=== PATIENT | male | born 1985 | race Caucasian/White ===

== ENCOUNTER 2018-10-17 09:27 | Inpatient (IN) | payer OTHER ==
--- NOTE | 2018-10-17 10:55 | HP ---
CIWA Score Nausea/Vomitin Muscle Tremors: 2 Anxiety: 2 Agitation: 2 Paroxysmal Sweats: 1-Minimal Palms Moist Orientation: 0-Oriented Tacttile Disturbances: 1-Very Mild Itch/Numbness Auditory Disturbances: 0-None Visual Disturbances: 1-Very Mild Sensitivity Headache: 2-Mild CIWA-Ar Total Score: 13 - Admission Criteria OASAS Guidelines: Admission for Medically Managed Detox: Requires at least one of the followin. CIWA greater than 12 2. Seizures within the past 24 hours 3. Delirium tremens within the past 24 hours 4. Hallucinations within the past 24 hours 5. Acute intervention needed for co occurring medical disorder 6. Acute intervention needed for co occurring psychiatric disorder 7. Severe withdrawal that cannot be handled at a lower level of care (continued vomiting, continued diarrhea, abnormal vital signs) requiring intravenous medication and/or fluids 8. Patient presents the following: CIWA greater than 12 Admission Criteria Met: Admission criteria met Admission ROS [facility] - HPI Chief Complaint: i need help to stop drinking alcohol,cocaine,marijuana,pcp Allergies/Adverse Reactions: Allergies Allergy/AdvReac Type Severity Reaction Status Date / Time No Known Allergies Allergy Verified 10/17/18 10:30 History of Present Illness: this 33 years old male with alcohol,cocaine,marijuana and pcp abused,withdrawal symptom,seeking detox,never been in detox before syncope nicotine dependence weight loss longest period for 16 months Exam Limitations: No Limitations - Ebola screening Have you traveled outside of the country in the last 21 days: No Have you had contact with anyone from an Ebola affected area: No Have you been sick,other than usual withdrawal symptoms: No Do you have a fever: No - Review of Systems Constitutional: Loss of Appetite, Malaise, Night Sweats, Changes in sleep, Weakness, Unintentional Wgt. Loss EENT: reports: Tearing, Nose Congestion Respiratory: reports: No Symptoms reported Cardiac: reports: No Symptoms Reported GI: reports: Nausea, Abdominal cramping : reports: No Symptoms Reported Musculoskeletal: reports: Back Pain, Muscle Pain Integumentary: reports: Dryness Neuro: reports: Headache, Tremors Endocrine: reports: No Symptoms Reported Hematology: reports: No Symptoms Reported Psychiatric: reports: No Sypmtoms Reported, Judgement Intact, Mood/Affect Appropiate, Orientated x3 Other Systems: Reviewed and Negative Patient History - Patient Medical History Hx Asthma: Yes (child silva asthma) Hx Chronic Obstructive Pulmonary Disease (COPD): No Hx Cancer: No Hx Cardiac Disorders: No Hx Congestive Heart Failure: No Hx Hypertension: No Hx Hypercholesterolemia: No Hx Pacemaker: No HX Cerebrovascular Accident: No Hx Seizures: No Hx Dementia: No Hx Diabetes: No Hx Gastrointestinal Disorders: No Hx Liver Disease: No Hx Genitourinary Disorders: No Hx Sexually Transmitted Disorders: No Hx Renal Disease (ESRD): No Hx Thyroid Disease: No Hx Human Immunodeficiency Virus (HIV): No (last 2017 negative) Hx Hepatitis C: No Hx Depression: No Hx Suicide Attempt: No Hx Bipolar Disorder: No Hx Schizophrenia: No Other Medical History: no suicidal,no homicidal - Patient Surgical History Past Surgical History: No Hx Neurologic Surgery: No Hx Cataract Extraction: No Hx Cardiac Surgery: No Hx Lung Surgery: No Hx Breast Surgery: No Hx Breast Biopsy: No Hx Abdominal Surgery: No Hx Appendectomy: No Hx Cholecystectomy: No Hx Genitourinary Surgery: No Hx Section: No Hx Orthopedic Surgery: No Anesthesia Reaction: No - PPD History Previous Implant?: Yes Documented Results: Negative w/o proof Implanted On Prior [facility] Admission?: No PPD to be Administered?: No - Smoking Cessation Smoking history: Current every day smoker Have you smoked in the past 12 months: Yes Aproximately how many cigarettes per day: 20 Hx Chewing Tobacco Use: No Initiated information on smoking cessation: Yes 'Breaking Loose' booklet given: 10/17/18 - Substance & Tx. History Hx Alcohol Use: Yes Hx Substance Use: Yes Substance Use Type: Alcohol, Cocaine, Marijuana Hx Substance Use Treatment: No - Substances Abused Cocaine Route: Inhalation Frequency: 1-2 times per week Amount used: $100 Age of first use: 11 Date of Last Use: 10/10/18 PCP Route: Smoking Frequency: 3-6 times per week Amount used: $20 Age of first use: 17 Date of Last Use: 10/16/18 Alcohol-beer/cognac Route: Oral Frequency: Daily Amount used: 2-3 6 pks./2-3 pts. Age of first use: 11 Date of Last Use: 10/17/18 Marijuana Route: Smoking Frequency: Daily Amount used: $40 Age of first use: 9 Date of Last Use: 10/16/18 Family Disease History - Family Disease History Family Disease History: Other: Father (alcohol,dsa,), Mother (alcohol, dsa,) Admission Physical Exam [facility] - Vital Signs Vital Signs: Vital Signs - 24 hr 10/17/18 09:49 Temperature 97.2 F L Pulse Rate 73 Respiratory 18 Rate Blood Pressure 122/85 - Physical General Appearance: Yes: Moderate Distress, Tremorous, Irritable, Sweating, Anxious HEENTM: Yes: Normal ENT Inspection, GIOVANA, Pharynx Normal Respiratory: Yes: Lungs Clear, Normal Breath Sounds, No Respiratory Distress Neck: Yes: Within Normal Limits, Supple, Trachea in good position Breast: Yes: Within Normal Limits Cardiology: Yes: Within Normal Limits, Regular Rhythm, Regular Rate, S1, S2 Abdominal: Yes: Within Normal Limits, Non Tender, Flat, Soft Genitourinary: Yes: Within Normal Limits Back: Yes: Within Normal Limits, Muscle Spasm Musculoskeletal: Yes: Back pain, Muscle Pain Extremities: Yes: Within Normal Limits, Normal Range of Motion, Tremors Neurological: Yes: signal processing engineer II-XII NML intact, Fully Oriented, Alert, Motor Strength 5/5 Integumentary: Yes: Dry Lymphatic: Yes: Within Normal Limits - Diagnostic (1) Alcohol dependence with uncomplicated withdrawal Status: Acute (2) Cocaine dependence Status: Acute (3) Cannabis dependence Status: Acute (4) PCP (phencyclidine) abuse Status: Acute (5) Syncope Status: Acute (6) Weight loss Status: Acute Cleared for Admission [facility] - Detox or Rehab [facility] Level of Care: Medically Managed Detox Regimen/Protocol: Librium [facility] Breath Alcohol Content Breath Alcohol Content: 0 Urine Drug Screen - Results Drug Screen Negative: No Urine Drug Screen Results: THC-Marijuana, BZO-Benzodiazepines
[2018-10-17] MEDS ORDERED: MAG HYDROX/AL HYDROX/SIMETH 30 ML UNIT-DOSE CUP PO PRN (11:03)
[2018-10-17] MEDS ORDERED: MAGNESIUM CITRATE 300 ML BOTTLE PO PRN (11:03)
[2018-10-17] MEDS ORDERED: IBUPROFEN 400 MG TABLET (FP) PO PRN (11:03)
[2018-10-17] MEDS ORDERED: MENTHOL/PHENOL 1 EACH UD MM PRN (11:03)
[2018-10-17] MEDS ORDERED: P-EPHED 60MG/TRIPROLIDI 2.5MG TABLET PO PRN (11:03)
[2018-10-17] MEDS ORDERED: hydrOXYzine PAMOATE 50 MG CAPSULE (FP) PO PRN (11:03)
[2018-10-17] MEDS ORDERED: guaiFENesin/D-METHORPHAN HB 10 ML UNIT-DOSE CUPS PO PRN (11:03)
[2018-10-17] MEDS ORDERED: NICOTINE POLACRILEX 2 MG GUM BUC PRN (11:03)
[2018-10-17] MEDS ORDERED: MAGNESIUM HYDROX 2400MG/30ML ORAL SUSPENSION 30 ML CUP PO PRN (11:03)
[2018-10-17] MEDS ORDERED: LOPERAMIDE HCL 2 MG CAPSULE PO PRN (11:03)
[2018-10-17] MEDS ORDERED: chlordiazePOXIDE HCL 25 MG CAPSULE PO PRN (11:03)
[2018-10-17] MEDS ORDERED: ACETAMINOPHEN 325 MG TABLET (FP) PO PRN (11:03)
[2018-10-17] MEDS ORDERED: NICOTINE 21 MG/24 HOURS TOPICAL PATCH TD SCH (11:45)
--- NOTE | 2018-10-17 12:56 | EKG ---
Test Reason : Blood Pressure : / mmHG Vent. Rate : 071 BPM Atrial Rate : 071 BPM P-R Int : 114 ms QRS Dur : 084 ms QT Int : 362 ms P-R-T Axes : 034 083 061 degrees QTc Int : 393 ms NORMAL SINUS RHYTHM NORMAL ECG NO PREVIOUS ECGS AVAILABLE Confirmed by STEPHEN COLÓN, DAK[place] ([id number]) on 10/17/2018 12:56:26 PM Referred By: Confirmed By:DAKOTA MITCHELL MD
[2018-10-17] MEDS: chlordiazePOXIDE HCL 25 MG CAPSULE PO SCH ×2 (17:31→22:19)
[2018-10-17 21:09] LABS: URINE APPEARANCE CLEAR; URINE BILIRUBIN NEGATIVE (<2.0 mg/dL); URINE COLOR YELLOW; URINE GLUCOSE (UA) NEGATIVE (NEGATIVE); URINE KETONE NEGATIVE (NEGATIVE); URINE LEUK ESTERASE NEGATIVE (NEGATIVE); URINE NITRITE NEGATIVE (NEGATIVE); URINE PROTEIN NEGATIVE (NEGATIVE); URINE UROBILINOGEN NEGATIVE mg/dL (0.2-1.0)
[2018-10-17] MEDS ORDERED: MELATONIN 5 MG TABLETS PO PRN (22:00)
[2018-10-17] MEDS ORDERED: THIAMINE HCL 100 MG TABLET (FP) PO SCH (22:00)
[2018-10-18] MEDS: chlordiazePOXIDE HCL 25 MG CAPSULE PO SCH (06:07)
[2018-10-18 06:24] VITALS: BP 99/60; PULSE 76; TEMP 96.3
--- NOTE | 2018-10-18 08:36 | DS ---
[facility] Detox Discharge Summary Admission Date: 10/17/18 Discharge Date: 10/18/18 - History Present History: Alcohol Dependence Additional Comments: 33 years old male admitted on 10/17/18 for alcohol withdrawal stabilization insists to leave the detox unit due to "need to go to work" alert no acute distress denies suicidal no homocidal no self destructive behavior [facility] - Physical Exam Results Vital Signs: Vital Signs Temperature 96.3 F L 10/18/18 06:23 Pulse Rate 76 10/18/18 06:23 Respiratory Rate 18 10/18/18 06:23 Blood Pressure 99/60 10/18/18 06:23 O2 Sat by Pulse Oximetry (%) Pertinent Admission Physical Exam Findings: alcohol withdrawal sx Laboratory Last Values Urine Color Yellow 10/17/18 15:10 Urine Appearance Clear 10/17/18 15:10 Urine pH 5.0 (5.0-8.0) 10/17/18 15:10 Ur Specific [place] 1.019 (1.010-1.035) 10/17/18 15:10 Urine Protein Negative (NEGATIVE) 10/17/18 15:10 Urine Glucose (UA) Negative (NEGATIVE) 10/17/18 15:10 Urine Ketones Negative (NEGATIVE) 10/17/18 15:10 Urine Blood Negative (NEGATIVE) 10/17/18 15:10 Urine Nitrite Negative (NEGATIVE) 10/17/18 15:10 Urine Bilirubin Negative (<2.0 mg/dL) 10/17/18 15:10 Urine Urobilinogen Negative mg/dL (0.2-1.0) 10/17/18 15:10 Ur Leukocyte Esterase Negative (NEGATIVE) 10/17/18 15:10 HIV 1&2 Antibody Screen Negative 10/17/18 11:10 HIV P24 Antigen Negative 10/17/18 11:10 leb noted - Treatment Hospital Course: Detox Protocol Followed, Responded well Patient has Accepted a Rehab Referral to: [facility] - Medication Discharge Medications: Ambulatory Orders NK [No Known Home Medication] 10/17/18 - Diagnosis (1) Alcohol dependence with uncomplicated withdrawal Current Visit: Yes Status: Acute (2) Weight loss Current Visit: Yes Status: Acute - AMA Did Patient Leave Against Medical Advice: Yes
[2018-10-18] MEDS ORDERED: PRENATAL VITAMINS W/ FOLIC ACID TABLET (FP) PO SCH (10:00)
[2018-10-18 10:31] LABS: MCHC 32.5 g/dl (32.0-35.9)
[2018-10-18 10:35] LABS: HEMATOCRIT 46.8 % (35.4-49); HEMOGLOBIN 15.2 GM/dL (11.7-16.9); MCH 30.3 pg (25.7-33.7); MEAN CELL VOLUME 93.4 fl (80-96); MEAN PLT VOLUME 8.7 fl (7.5-11.1); PLATELET COUNT 296 K/MM3 (134-434); RBC 5.01 M/mm3 (4.00-5.60); RDW 13.3 % (11.9-15.9); WHITE BLOOD COUNT 7.5 K/mm3 (4.0-10.0)
[2018-10-18 11:17] LABS: ALBUMIN 4.4 g/dl (3.4-5.0); ALK PHOS 52 U/L (45-117); ANION GAP 9 MMOL/L (8-16); BILIRUBIN,TOTAL 0.8 mg/dL (0.2-1); BLOOD UREA NITROGEN 10 mg/dL (7-18); CALCIUM 9.4 mg/dL (8.5-10.1); CHLORIDE 103 mmol/L (98-107); CO2 26 mmol/L (21-32); GLUCOSE,RANDOM 90 mg/dL (74-106); SGOT/AST 18 U/L (15-37); SGPT/ALT 23 U/L (13-61); SODIUM 138 mmol/L (136-145)
[2018-10-18] MEDS ORDERED: chlordiazePOXIDE HCL 25 MG CAPSULE PO SCH (17:00)
[2018-10-19] MEDS ORDERED: chlordiazePOXIDE 5 MG CAPSULE PO SCH (17:00)
[2018-10-20] MEDS ORDERED: chlordiazePOXIDE HCL 10 MG CAPSULE PO SCH (17:00)
== END 2018-10-18 09:26 | disposition left against medical advice (07) | DRG 770 ==
LOC: YASAS 09:27 → Y3N 11:17
PROC: HZ2ZZZZ Detoxification Services for Substance Abuse Treatment (ICD-10-PCS; principal; 2018-10-17)
DX: F10.230 Alcohol dependence with withdrawal, uncomplicated (principal); F14.20 Cocaine dependence, uncomplicated; F12.20 Cannabis dependence, uncomplicated; F16.10 Hallucinogen abuse, uncomplicated; F17.210 Nicotine dependence, cigarettes, uncomplicated
CPT/HCPCS: 36415; 80053; 81003; 85027; 86593; 87389; 93005; 93010